=== PATIENT | female | born 1995 | race Caucasian/White ===

== ENCOUNTER 2018-02-18 13:35 | Inpatient (IN) | payer OTHER ==
[2018-02-18 17:55] LABS: RUPTURE FETAL MEMBRANES POSITIVE (NEGATIVE)
[2018-02-18] MEDS ORDERED: MISOPROSTOL 200 MCG TAB PR (19:00)
[2018-02-18] MEDS ORDERED: LIDOCAINE 1% (MPF) 30 ML INJ INJ (19:00)
[2018-02-18] MEDS ORDERED: OXYTOCIN 30 UNITS/LR 500 ML IV (19:00)
[2018-02-18] MEDS ORDERED: CARBOPROST 250 MCG INJ IM (19:00)
[2018-02-18 19:28] LABS: ADD MAN DIFF? NO
[2018-02-18 19:29] LABS: BASOPHILS % 0.3 % (0.0-2.0); EOSINOPHILS % 0.2 % (0.0-7.0); HEMATOCRIT 35.8 % (37.0-47.0); HEMOGLOBIN 12.1 g/dl (12.0-16.0); LYMPHOCYTES # 2.2 10^3/ul (0.8-2.9); MEAN CORPUSCULAR HEMOGLOBIN 30.9 pg (29.0-33.0); MEAN CORPUSCULAR HGB CONC 33.8 g/dl (32.0-37.0); MEAN CORPUSCULAR VOLUME 91.6 fl (72.0-104.0); MEAN PLATELET VOLUME 11.3 fl (7.4-10.4); MONOCYTE # 0.6 10^3/ul (0.3-0.9); MONOCYTES % 6.8 % (0.0-13.0); NEUTROPHILS % 67.4 % (30.0-74.0); PLATELET COUNT 142 10^3/UL (140-415); RED BLOOD COUNT 3.91 10^6/ul (4.20-5.40); RED CELL DISTRIBUTION WIDTH 14.5 % (11.5-14.5)
[2018-02-18 19:50] LABS: PARTIAL THROMBOPLASTIN TIME 28.9 Sec (23.0-35.0)
[2018-02-18] MEDS: AMPICILLIN 2 GM/NS (PMX) 100 ML IV (20:20)
[2018-02-18] MEDS: LACTATED RINGER'S 1,000 ML IV (20:20)
[2018-02-18 20:24] LABS: HEPATITIS B SURFACE ANTIGEN NEGATIVE (NEGATIVE)
[2018-02-18 20:31] LABS: INR 0.91; PROTIME 12.3 Sec (11.9-14.9)
[2018-02-19] MEDS: AMPICILLIN 1 GM/NS (PMX) 50 ML IV ×2 (00:24→04:27)
[2018-02-19] MEDS: BUTORPHANOL 2 MG INJ IV (00:25)
[2018-02-19] MEDS ORDERED: FENTAnyl 2MCG/ML-ROPIV 0.2% 100 ML (02:27)
[2018-02-19] MEDS ORDERED: ONDANSETRON 4 MG INJ IV (02:30)
[2018-02-19] MEDS ORDERED: NALOXONE (0.4 MG/ML) INJ IV (02:30)
[2018-02-19] MEDS ORDERED: FENTAnyl 2MCG/ML-ROPIV 0.2% 100 ML BAG EPI (02:30)
[2018-02-19] MEDS ORDERED: DIPHENHYDRAMINE 50 MG INJ IV (02:30)
[2018-02-19] MEDS ORDERED: OXYTOCIN 30 UNITS/LR 500 ML IV ×2 (06:00→11:30)
[2018-02-19] MEDS ORDERED: LIDOCAINE 1% (MPF) 30 ML INJ (06:54)
[2018-02-19] MEDS: LACTATED RINGER'S 1,000 ML IV ×3 (07:34→18:32)
[2018-02-19] MEDS: METHYLERGONOVINE 0.2 MG INJ IM (09:58)
[2018-02-19] MEDS: OXYTOCIN 30 UNITS/LR 500 ML IV ×3 (09:59→11:26)
[2018-02-19] MEDS: LACTATED RINGER'S 1,000 ML IV* (11:26)
[2018-02-19] MEDS ORDERED: MISOPROSTOL 200 MCG TAB PR (11:30)
[2018-02-19] MEDS ORDERED: METHYLERGONOVINE 0.2 MG INJ IM (11:30)
[2018-02-19] MEDS ORDERED: DIPHENHYDRAMINE 25 MG CAP PO (11:30)
[2018-02-19] MEDS ORDERED: HYDROCODONE/APAP (5/325) TAB PO (11:30)
[2018-02-19] MEDS ORDERED: MAGNESIUM HYDROXIDE 30ML CUP PO (11:30)
[2018-02-19] MEDS ORDERED: CARBOPROST 250 MCG INJ IM (11:30)
[2018-02-19] MEDS ORDERED: ACETAMINOPHEN 325 MG TAB PO (11:30)
[2018-02-19] MEDS ORDERED: ZOLPIDEM 5 MG TAB PO (11:30)
[2018-02-19] MEDS: IBUPROFEN 800 MG TAB PO ×3 (12:22→23:33)
[2018-02-19] MEDS: WITCH HAZEL/GLYCERIN PAD PR (12:23)
[2018-02-19] MEDS: LANOLIN 7 GM TUBE TOP (12:23)
[2018-02-19] MEDS: BENZOCAINE 20% 56 ML SPRAY TOP (12:24)
[2018-02-19 17:23] LABS: RAPID PLASMA REAGIN NONREACTIVE (NR)
[2018-02-19] MEDS: SENNA/DOCUSATE NA (8.6MG/50MG) TAB PO (23:33)
[2018-02-20] MEDS: IBUPROFEN 800 MG TAB PO ×3 (05:35→17:58)
[2018-02-20 07:28] LABS: ADD MAN DIFF? NO
[2018-02-20 07:31] LABS: BASOPHILS % 0.2 % (0.0-2.0); EOSINOPHILS # 0.1 10^3/ul (0.0-0.5); EOSINOPHILS % 0.6 % (0.0-7.0); HEMATOCRIT 29.4 % (37.0-47.0); HEMOGLOBIN 9.8 g/dl (12.0-16.0); LYMPHOCYTES # 2.7 10^3/ul (0.8-2.9); LYMPHOCYTES % 31.9 % (18.0-55.0); MEAN CORPUSCULAR HEMOGLOBIN 31.1 pg (29.0-33.0); MEAN CORPUSCULAR HGB CONC 33.3 g/dl (32.0-37.0); MEAN CORPUSCULAR VOLUME 93.3 fl (72.0-104.0); MEAN PLATELET VOLUME 12.1 fl (7.4-10.4); MONOCYTE # 0.8 10^3/ul (0.3-0.9); MONOCYTES % 9.5 % (0.0-13.0); NEUTROPHIL # 4.9 10^3/ul (1.6-7.5); NEUTROPHILS % 57.4 % (30.0-74.0); PLATELET COUNT 115 10^3/UL (140-415); RED BLOOD COUNT 3.15 10^6/ul (4.20-5.40); RED CELL DISTRIBUTION WIDTH 14.5 % (11.5-14.5)
[2018-02-20 07:31] LABS: WHITE BLOOD COUNT 8.5 10^3/ul (4.8-10.8)
[2018-02-20] MEDS: IBUPROFEN 600 MG TAB PO (23:35)
[2018-02-21] MEDS: IBUPROFEN 800 MG TAB PO ×3 (05:42→11:36)
[2018-02-21] MEDS: DIPHTH/TET/ACEL PERTUSS (ADULT) 0.5 ML VIAL IM* (08:47)
[2018-02-21] MEDS: VARICELLA VACCINE LIVE/PF 1,350 UNIT/0.5 ML ML SC* (09:00)
[2018-02-21] MEDS: MEASLES,MUMPS,RUBELLA VACCINE INJ SC* (11:37)
== END 2018-02-21 12:10 | disposition home or self-care (01) | DRG 807 ==
LOC: OBT 13:35 → PP1 02-19 10:38 → L-D 13:35 → OBT 18:00 → L-D 18:00
PROVIDERS: Obstetrics & Gynecology
PROC: 10E0XZZ Delivery of Products of Conception, External Approach (ICD-10-PCS; principal; 2018-02-18)
DX: O80 Encounter for full-term uncomplicated delivery (principal); Z37.0 Single live birth; Z3A.38 38 weeks gestation of pregnancy
CPT/HCPCS: 62319; 84112; 85025; 85610; 85730; 86592; 86850; 86900; 86901; 87340; 90686; 90715; 90716; 99464